=== PATIENT | male | born 1990 | race Caucasian/White ===

== ENCOUNTER 2023-03-07 20:01 | Emergency (ER) | payer OTHER ==
[2023-03-07 20:18] VITALS: BMI 34.0
[2023-03-07] MEDS ORDERED: KETOROLAC TROMETHAMINE 60 MG/2 ML VIAL IM ONE (22:26)
[2023-03-07] MEDS ORDERED: KETOROLAC TROMETHAMINE 60 MG/2 ML VIAL ONE (22:29)
[2023-03-08 01:09] VITALS: BP 109/60; PULSE 62; RESP 16; TEMP 97.7
== END 2023-03-08 02:00 | disposition home or self-care (01) ==
LOC: JERFT 20:01 → JER 20:01
PROC: 3E0233Z Introduction of Anti-inflammatory into Muscle, Percutaneous Approach (ICD-10-PCS; principal; 2023-03-07)
DX: M54.50 Low back pain, unspecified (principal)
CPT/HCPCS: 72100-TC-FY; 72131-TC; 99284-25